=== PATIENT | female | born 1950 | race Caucasian/White ===

== ENCOUNTER 2024-06-01 10:46 | Emergency (ER) | payer MEDICARE, BC ==
[~2024-06-01] VITALS: Ht 170.2 cm; Wt 74.0 kg
--- NOTE | 2024-06-01 11:52 | ECG ---
[facility] Test Date: 2024-06-01 Test Time: 11:22:28 Pat Name: LINNEA TORRES Department: ER Room: Gender: F General Labor: LENORE : 1950 Requested By: MICHAEL YODER Order Number: [id number] Reading MD: Measurements Intervals [place] Rate: 83 P: 57 [place]: 130 QRS: 68 QRSD: 86 T: 48 QT: 369 QTc: 434 Interpretive Statements Sinus rhythm Please click the below link to view image of tracing.
[2024-06-01 12:15] LABS: Basophils # (auto) 0 10 ^3/uL (0-0.2); Basophils % (auto) 0.4 % (0.0-2.0); Eosinophils # (auto) 0 10 ^3/uL (0-0.8); Eosinophils % (auto) 0.1 % (0.0-7.0); Hematocrit 36.9 % (36.0-46.0); Hemoglobin 12.7 g/dL (12.2-16.2); Lymphocytes # (auto) 0.5 10 ^3/uL (0.4-5.4); Lymphocytes % (auto) 7.7 % (10.0-50.0); Mean Corpuscular Hemoglobin 31.2 pg (28.0-32.0); Mean Corpuscular Hgb Conc. 34.6 g/dL (32.0-36.0); Mean Corpuscular Volume 90.3 fL (80.0-100.0); Monocytes # (auto) 0.4 10 ^3/uL (0-1.3); Monocytes % (auto) 5.5 % (0.0-12.0); Neutrophils # (auto) 6.1 10 ^3/uL (1.6-8.6); Neutrophils % (auto) 86.3 % (37.0-80.0); Platelet Count (auto) 159 10^3/uL (140-450); Red Blood Cells 4.08 10^6/uL (4.0-5.20); Red Cell Distribution Width 15.2 % (11.8-14.3)
[2024-06-01 12:24] LABS: Anion Gap 8 (5-15); Carbon Dioxide 25 mmol/L (20-31); Chloride 104 mmol/L (98-107); Potassium 3.9 mmol/L (3.5-5.1); Sodium 137 mmol/L (136-145)
[2024-06-01] MEDS: methylPREDNISolone SOD SUCC 125 MG/2 ML VL IV ONE (12:24)
[2024-06-01 12:25] LABS: Calcium 9.3 mg/dL (8.7-10.4)
[2024-06-01 12:30] LABS: BUN/Creatinine Ratio 11.6 (10.0-20.0); Blood Urea Nitrogen 14 mg/dL (9-23)
[2024-06-01 12:35] LABS: Glucose 123 mg/dL (74-106)
--- NOTE | 2024-06-01 12:35 | ED.PDOC ---
SOB-HPI HPI Comments 73 y.o female presents to the ED for a chief complaint of SOB associated with a cough and white phlegm sputum that started 2 weeks ago. Patient has been in contact with sick family member recently. Patient reports being seen at urgent care earlier today, was told her SPO2 was reading in the low 90's/ high 80's so she was given a breathing treatment and placed on oxygen. Patient felt relief s/p treatment but SPO2 dropped when taken off oxygen. Patient arrives to the ED with 3 liters of oxygen placed by urgent care and is saturating at 96%. Patient denies any chest pain, nausea, vomiting, fever, or chills. Patient has a medical history of COPD stage 2, CKD stage 3, HTN, GERD, pancreatitis. Patient is not on any oxygen at home and has been using her inhaler but has no relief. Patient was a previous tobacco smoker and now is on nicotine patches. Chief Complaint: Shortness of Breath Time Seen by MD: 11:33 Reviewed notes: Nurses Notes, Medications, Allergies Information Source: Patient Mode of Arrival: Ambulatory Severity: Moderate Timing: Weeks (2) Duration: Since onset Context: At Rest PE Risk Factors: None History of: COPD Modifying Factors: Nothing Associated Signs and Symptoms: Cough If cough with SOB: Productive, White Past Medical History PAST MEDICAL HISTORY: COPD, GERD, HTN Past Medical History (Other): CKD stage 3, pancreatitis Surgical History (Other): benign breast biopsy TARGET TRIMMER History: No Pertinent TARGET TRIMMER History Family History Family History: Reviewed,noncontributory to illness, No family hx of Cancer, No family hx of DM, No family hx of Heart stephen, No family hx of HTN, No family hx ofKidney stephen, No family hx of Liver stephen, No family hx of Lung stephen, No family hx of Stroke Social History Smoker: Non-Smoker, Other Alcohol: Denies ETOH Use Drugs: Denies Drug Use Lives In: Home Constitutional: denies: chills, diaphoresis, fatigue, fever, malaise, sweats, weakness, others EENTM: denies: blurred vision, double vision, ear bleeding, ear discharge, ear drainage, ear pain, ear ringing, eye pain, eye redness, hearing loss, mouth pain, mouth swelling, nasal discharge, nose bleeding, nose congestion, nose pain, photophobia, tearing, throat pain, throat swelling, voice changes, others Respiratory: reports: cough, SOB at rest, shortness of breath, SOB with excertion; denies: hemoptysis, orthopnea, stridor, wheezing, others Cardiovascular: denies: chest pain, dizzy spells, diaphoresis, Dyspnea on exertion, edema, irregular heart beat, left arm pain, lightheadedness, palpitations, PND, syncope, others Gastrointestinal: denies: abdomen distended, abdominal pain, blood streaked bowels, constipated, diarrhea, dysphagia, difficulty swallowing, hematemesis, melena, nausea, poor appetite, poor fluid intake, rectal bleeding, rectal pain, vomiting, others Genitourinary: denies: abnormal vagina bleeding, burning, dyspareunia, dysuria, flank pain, frequency, hematuria, incontinence, pain, , vagina discharge, urgency, others Neurological: denies: dizziness, fainting, headache, left sided numbness, left sided weakness, numbness, paresthesia, pre-existing deficit, right sided numbness, right sided weakness, seizure, speech problems, tingling, tremors, weakness, others Musculoskeletal: denies: back pain, gout, joint pain, joint swelling, muscle pain, muscle stiffness, neck pain, others Integumetry: denies: bruises, change in color, change in hair/nails, dryness, laceration, lesions, lumps, rash, wounds, others Allergic/Immunocompromised: denies: Difficulty Healing, Frequent Infections, Hives, Itching, others Hematologic/Lymphatic: denies: anemia, blood clots, easy bleeding, easy bruising, swollen glands, others Endocrine: denies: excessive hunger, excessive sweating, excessive thirst, excessive urination, flushing, intolerance to cold, intolerance to heat, une xplained weight gain, unexplained weight loss, others Psychiatric: denies: anxiety, bipolar disorder, depression, hopeless, panic disorder, schizophrenia, sleepless, suicidal, others All Other Systems: Reviewed and Negative Physical Exam General Appearance: No Apparent Distress HEENT: Other (Moist mucous membranes, face and pupils symmetric) Neck: Full Range of Motion, Normal Inspection Respiratory: Decreased Breath Sounds, No Accessory Muscle Use, No Respiratory Distress, Rhonchi Cardiovascular: No Edema, No JVD, Regular Rate/Rhythm Breast Exam: Deferred Gastrointestinal: Non Tender, Soft Genitalia: Deferred Pelvic: Deferred Rectal: Deferred Extremities: Normal inspection, Normal range of motion, Non-tender, No pedal edema Neurologic: Alert (Oriented x4), Normal Affect, Normal Mood, Other (Moves all extremities. No gross focal deficit.) Cerebellar Function: NOT DONE Reflexes: NOT DONE Skin: Dry, Normal Color, Warm Lymphatic: NOT DONE EKG EKG : Comments Sinus rhythm, rate 83, normal intervals, normal axis, normal QRS, no ST/T changes. Was a procedure done? Was a procedure done?: No Differential Dx Differential Diagnosis: Bronchitis, CHF, COPD, Pneumonia, Respiratory Distress, URI X-Ray, Labs, Meds, VS Vital Signs Date Time Temp Pulse Resp B/P (MAP) Pulse Ox O2 Delivery O2 Flow Rate FiO2 06/01/24 12:47 18 93 Nasal Cannula* 3 32 06/01/24 12:47 93 Nasal Cannula* 3 32 06/01/24 12:30 Nasal Cannula* 3 32 06/01/24 12:27 98.9 70 20 100/72 (81) 98 98.9 06/01/24 11:26 20 96 Nasal Cannula* 3 32 06/01/24 11:26 98.9 65 20 99/74 (82) 96 06/01/24 11:22 83 Lab Test 06/01/24 13:12 06/01/24 12:00 Range/Units Troponin I High Sensitivity 3 L 4 </=34 ng/L White Blood Count 7.0 4.4-10.8 10^3/uL Red Blood Count 4.08 4.0-5.20 10^6/uL Hemoglobin 12.7 12.2-16.2 g/dL Hematocrit 36.9 36.0-46.0 % Mean Corpuscular Volume 90.3 80.0-100.0 fL Mean Corpuscular Hemoglobin 31.2 28.0-32.0 pg Mean Corpuscular Hemoglobin Concent 34.6 32.0-36.0 g/dL Red Cell Distribution Width 15.2 H 11.8-14.3 % Platelet Count 159 140-450 10^3/uL Mean Platelet Volume 7.2 6.9-10.8 fL Neutrophils (%) (Auto) 86.3 H 37.0-80.0 % Lymphocytes (%) (Auto) 7.7 L 10.0-50.0 % Monocytes (%) (Auto) 5.5 0.0-12.0 % Eosinophils (%) (Auto) 0.1 0.0-7.0 % Basophils (%) (Auto) 0.4 0.0-2.0 % Neutrophils # (Auto) 6.1 1.6-8.6 10 ^3/uL Lymphocytes # (Auto) 0.5 0.4-5.4 10 ^3/uL Monocytes # (Auto) 0.4 0-1.3 10 ^3/uL Eosinophils # (Auto) 0 0-0.8 10 ^3/uL Basophils # (Auto) 0 0-0.2 10 ^3/uL Nucleated Red Blood Cells 0.0 % Sodium Level 137 136-145 mmol/L Potassium Level 3.9 3.5-5.1 mmol/L Chloride Level 104 98-107 mmol/L Carbon Dioxide Level 25 20-31 mmol/L Anion Gap 8 5-15 Blood Urea Nitrogen 14 9-23 mg/dL Creatinine 1.21 H 0.550-1.02 mg/dL Glomerular Filtration Rate Calc 47 >90 mL/min BUN/Creatinine Ratio 11.6 10.0-20.0 Serum Glucose 123 H 74-106 mg/dL Calcium Level 9.3 8.7-10.4 mg/dL B-Type Natriuretic Peptide 68.24 0-100 pg/mL Current Medications Medications (Trade) Dose Ordered Sig/Abdi Route Start Time Stop Time Status Last Admin Albuterol (Ventolin Medneb) 5 mg ONCE ONCE NEB 06/01/24 12:00 06/01/24 12:01 DC 06/01/24 12:41 Ipratropium [place] (Atrovent Medneb) 0.5 mg ONCE ONCE NEB 06/01/24 12:00 06/01/24 12:01 DC 06/01/24 12:42 Methylprednisolone Sodium Succinate (Solu Medrol) 125 mg ONCE ONCE IV 06/01/24 12:00 06/01/24 12:01 DC 06/01/24 12:[address] [address] Ph: [phone] DIAGNOSTIC IMAGING Diagnostic Imaging Report : [id number] Signed PATIENT: LINNEA TORRES ACCT: [id number] UNIT: [id number] : 1950 LOC: ER ROOM / BED: / AGE / SEX: 73 / F ADM STATUS: REG ER SERVICE 1149 ORDERING PHYSICIAN: MICHAEL MAXWELL MD PROCEDURE(s): CXRP - CHEST PORTABLE REASON: sob ORDER NUMBER(s): [id number], ACCESSION NUMBER(s): [id number] EXAM: XY CHEST PORTABLE HISTORY: sob COMPARISON: None TECHNIQUE: Portable upright AP view of the chest was performed. FINDINGS: No pneumothorax, consolidative infiltrates, or pulmonary edema. The heart is not enlarged. The aortic arch is calcific. IMPRESSION: No acute intrathoracic process. ATED BY: RHYS MORRISON MD DICTATED DATE/TIME: 06/01/24 1320 SIGNED BY: RHYS MORRISON MD SIGNED DATE/TIME: 06/01/24 1320 CC: X-Ray, Labs, Meds, VS Comment 73-year-old female with history of hypertension, GERD, COPD, CKD and pa ncreatitis referred by urgent care for difficulty breathing and hypoxia. Vitals remarkable for oxygen saturation 93% on 3 L nasal cannula Exam remarkable for scattered rhonchi, no respiratory distress Rhythm strip independently interpreted by me: Sinus rhythm, rate 83, no ectopy. Chest x-ray unremarkable CBC unremarkable, metabolic panel remarkable for creatinine 1.21, BNP and serial troponins negative Patient had already received 1 breathing treatment at urgent Care In ER she received albuterol 5 mg/Atrovent 0.5 mg nebulized, Solu-Medrol 125 mg IV On re-evaluation, oxygen saturation is still low on room air, patient is not in respiratory distress. Plan is to admit the patient for pulmonology evaluation and respiratory support as needed Time of 1ST Reevaluation: 12:35 Reevaluation 1ST: Unchanged Patient Education/Counseling: Diagnosis, Treatment, Prognosis Family Education/Counseling: No Family Present Departure 1 Departure Time of Disposition: 16:00 Impression: Primary Impression: COPD with acute exacerbation Disposition: ADMITTED INPATIENT Admit to: Tele Condition: Guarded Critical Care Note Critical Care Time?: No Stability Stability form required: No Heart Score Heart Score: Heart Score Response (Comments) Value History N/A 0 EKG N/A 0 Age N/A 0 Risk Factors N/A 0 Troponin N/A 0 Total 0 I personally scribed for MICHAEL MAXWELL MD ([facility]) on 06/01/24 at 12:35. Electronically submitted by Leeanna Zurita ([facility]). I personally scribed for MICHAEL MAXWELL MD ([facility]) on 06/01/24 at 15:12. Electronically submitted by Leeanna Zurita ([facility]). MICHAEL MAXWELL MD Jun 01, 2024 12:35
[2024-06-01] MEDS: ALBUTEROL SULF 2.5 MG/0.5ML(0.5%) NEB SOLN NEB ONE (12:41)
[2024-06-01] MEDS: IPRATROPIUM BROM 0.5 MG/2.5ML INH SOL NEB ONE (12:42)
--- NOTE | 2024-06-01 13:23 | DVH ---
EXAM: XY CHEST PORTABLE HISTORY: sob COMPARISON: None TECHNIQUE: Portable upright AP view of the chest was performed. FINDINGS: No pneumothorax, consolidative infiltrates, or pulmonary edema. The heart is not enlarged. The aorti c arch is calcific. IMPRESSION: No acute intrathoracic process.
[2024-06-01 16:50] VITALS: BP 104/50; PULSE 95; RESP 16; TEMP 98.2; O2SAT 90
[2024-06-01] MEDS ORDERED: ONDANSETRON HCL 4 MG/2 ML VIAL IV PRN (19:15)
[2024-06-01] MEDS ORDERED: ALBUTEROL SULF 2.5 MG/0.5ML(0.5%) NEB SOLN NEB PRN (19:15)
[2024-06-01] MEDS ORDERED: ACETAMINOPHEN 325 MG TAB PO PRN (19:15)
[2024-06-01] MEDS ORDERED: IPRATROPIUM BROM 0.5 MG/2.5ML INH SOL NEB PRN (19:15)
[2024-06-02] MEDS ORDERED: ENOXAPARIN SOD 40 MG/0.4 ML SYRINGE SC SCH (10:00)
== END 2024-06-01 18:55 | disposition left against medical advice (07) ==
LOC: ER 10:46 → OVERFLOW 18:55 → ER 18:55 → OVERFLOW 19:02 → UNDOADMIN 19:02 → UNDODISIN 19:55
DX: J44.1 Chronic obstructive pulmonary disease with (acute) exacerbation (principal); I12.9 Hypertensive chronic kidney disease with stage 1 through stage 4 chronic kidney disease, or unspecified chronic kidney disease; N18.30 Chronic kidney disease, stage 3 unspecified; K21.9 Gastro-esophageal reflux disease without esophagitis; Z98.890 Other specified postprocedural states
CPT/HCPCS: 36415; 71045; 80048; 83880; 84484; 85025; 93005; 94640; 96374; 99285; J2919; G0378

== ENCOUNTER 2024-07-07 12:09 | Inpatient (IN) | payer MEDICARE, BC ==
[~2024-07-07] VITALS: Ht 170.2 cm; Wt 73.7 kg
--- NOTE | 2024-07-07 12:22 | ED.PDOC ---
SOB-HPI HPI Comments 73 y.o female presents to the ED for a chief complaint of SOB associated with dizziness that started 3 days ago. Patient went to urgent care for SOB earlier today and low SPO2 reading in the low 80's on RA at home. Urgent care provided reported SPO2 was 92% RA, gave breathing treatment and placed her on a 4L simple mask prior to sending her to the ED for higher level of care. Patient continues to feel SOB. Patient was seen at that urgent care on 06/01/24, was placed on antibiotics and then seen at [facility] on 06/05/24 and again was prescribed another round of antibiotics with dx of PNA. Patient has finished both courses since. Patient denies any chest pain, nausea, vomiting, diarrhea, abdominal pain, back pain, fever, or chills. Patient is not on any home oxygen. Vitals: BP: 122/70 HR: 138 Temp: 99.4 F SPO2: 96% RA RR: 22 Past medical history: HTN, hyperlipidemia, CKD stage 3, pancreatitis COPD Past surgical history: appendectomy and fundoplication Allergies: Iodine HPI: Poor Historian. REVIEW OF SYSTEMS: CONSTITUTIONAL: Denies acute: fever, diaphoresis, chills, HEAD: Denies acute: headache, photophobia Eyes: Denies acute: Double vision, vision loss, eye pain, eye discharge. EARS: Denies acute: tinnitus, hearing loss, ear discharge, ear pain, THROAT: Denies acute: sore throat, swelling, difficulty swallowing , pain with swallowing, change in voice. NECK: Denies acute: neck pain, neck swelling, stiff neck. HEART: Denies acute : chest pain, palpitations, LUNGS: Denies acute: wheezing, cough, hemoptysis ABDOMEN: Denies acute: abdominal pain, Nausea, Vomiting, diarrhea, melena , hematemesis, hematochezia SKIN: Denies acute: rash, redness, lesions, itchiness. EXTREMITIES: Denies acute: calf pain, numbness, tingling, weakness, denies pain in extremity. Denies acute: Low back pain. Neuro: Denies acute: focal neurological deficit, motor or sensory focal neurological deficit, tremors, seizure like activity, confusion, change in mental status, loss of bowel or bladder function, cauda equina like symptoms. : Denies acute: dysuria, hematuria, flank pain, increase in urinary frequency. PSYCH: Denies acute: hallucination, suicidal ideation, homicidal ideation. FEMALE: Denies acute: abnormal vaginal bleeding, foul odor, unusual discharge. PHYSICAL EXAM: General: --[id number]------acute distress, awake and alert. Head: normocephalic, atraumatic. Neck: supple, trachea is midline, no swelling. Throat: Normal phonation. Eyes:, no erythema, no purulent discharge, no proptosis, no icterus. Heart: regular tachycardic, no significant murmur appreciated. Lungs: [id number] apparent respiratory distress, Able to speak in full sentences. No wheezing, no rhonchi, no crackles. No stridors Clear to auscultation bilaterally. Abdomen: non tender to palpation, non distended, soft, no guarding, no rebound, + bowel sounds. Neuro: Awake, Alert, oriented to name, self, situation, follows commands GCS=15. Speech is normal. Skin: no petechia, no purpura, no cyanosis, non-pale, not jaundice. Lower extremities: --no - Pitting edema no deformity, no focal swelling, no calf TTP. Makes eye contact. moves all four extremities. Face: no apparent facial droop. 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 Was a procedure done?: No Differential Dx Differential Diagnosis: Asthma, Bronchitis, COPD, Respiratory Distress, URI, Other (DDx include ACS, unstable angina, anxiety, PE, pneumothroax, neoplasm, cardiac ischemia, COPD, asthma, CHF, pleural effusion, tobacco abuse, pneumonia, hypoxia, hypercapnia, anemia., infection/sepsis., pulmonary edema. Asthma, Cardiac tamponade, infection.) X-Ray, Labs, Meds, VS Vital Signs Date Time Temp Pulse Resp B/P (MAP) Pulse Ox O2 Delivery O2 Flow Rate FiO2 07/07/24 19:06 107 07/07/24 18:00 99.2 106 15 129/87 (101) 94 99.2 07/07/24 16:00 99.2 121 14 123/79 (94) 94 99.2 07/07/24 15:49 116 07/07/24 13:12 98.5 133 16 119/71 (87) 97 98.5 07/07/24 13:12 16 16 97 Nasal Cannula* 3 32 07/07/24 13:02 133 07/07/24 12:20 99.4 138 22 122/70 (87) 96 99.4 Lab Test 07/07/24 16:17 07/07/24 15:42 07/07/24 14:20 07/07/24 14:14 Range/Units Troponin I High Sensitivity 7 5 </=34 ng/L Blood Gas Specimen Type Arterial Blood Gas Sample Site Right radial Blood Gas Patient Temperature 37.0 Arterial Blood Date Drawn [id number] Arterial Blood pH 7.500 H 7.350-7.450 Arterial Blood Partial Pressure CO2 28.3 L 32.0-45.0 mmHg Arterial Blood Partial Pressure O2 58.8 L 83.0-108.0 mmHg Arterial Blood HCO3 21.6 21.0-28.0 mmol/L Arterial Blood Oxygen Saturation 91.8 L 94.0-98.0 % Arterial Blood Base Excess -0.5 -2.0-3.0 mmol/L Arterial Blood Oxyhemoglobin 90.6 L 94.0-98.0 % Arterial Blood Carboxyhemoglobin 1.0 0.5-1.5 % Arterial Blood Methemoglobin 0.3 0.0-1.5 % Christian Test Yes Blood Gas Total Hemoglobin 12.80 12.0-16.0 g/dL Blood Gas Modality Room air FiO2 % 21.0 Urine Color Light-yellow Yellow Urine Clarity Clear Clear Urine pH 6.5 5.0-9.0 Urine Specific [place] 1.016 1.001-1.035 Urine Protein Negative Negative Urine Ketones 1+ H Negative Urine Blood Negative Negative /uL Urine Nitrite Negative Negative Urine Bilirubin Negative Negative Urine Urobilinogen Normal Negative mg/dL Urine Leukocyte Esterase Negative Negative /uL Urine RBC 3 0 - 4 /hpf Urine Microscopic WBC 7 H 0-5 /HPF Urine Squamous Epithelial Cells Few <5 /hpf Urine Bacteria None seen None Seen /hpf Urine Glucose Normal Normal mg/dL Test 07/07/24 12:54 07/07/24 12:35 07/07/24 12:31 Range/Units White Blood Count 4.6 4.4-10.8 10^3/uL Red Blood Count 4.06 4.0-5.20 10^6/uL Hemoglobin 12.4 12.2-16.2 g/dL Hematocrit 36.9 36.0-46.0 % Mean Corpuscular Volume 91.0 80.0-100.0 fL Mean Corpuscular Hemoglobin 30.6 28.0-32.0 pg Mean Corpuscular Hemoglobin Concent 33.6 32.0-36.0 g/dL Red Cell Distribution Width 15.7 H 11.8-14.3 % Platelet Count 156 140-450 10^3/uL Mean Platelet Volume 7.3 6.9-10.8 fL Neutrophils (%) (Auto) 55.3 37.0-80.0 % Lymphocytes (%) (Auto) 28.9 10.0-50.0 % Monocytes (%) (Auto) 14.7 H 0.0-12.0 % Eosinophils (%) (Auto) 0.5 0.0-7.0 % Basophils (%) (Auto) 0.6 0.0-2.0 % Neutrophils # (Auto) 2.6 1.6-8.6 10 ^3/uL Lymphocytes # (Auto) 1.3 0.4-5.4 10 ^3/uL Monocytes # (Auto) 0.7 0-1.3 10 ^3/uL Eosinophils # (Auto) 0 0-0.8 10 ^3/uL Basophils # (Auto) 0 0-0.2 10 ^3/uL Nucleated Red Blood Cells 0.1 % D-Dimer, Quantitative 0.57 H 0.0-0.49 mg/L FEU Sodium Level 141 136-145 mmol/L Potassium Level 3.4 L 3.5-5.1 mmol/L Chloride Level 106 98-107 mmol/L Carbon Dioxide Level 25 20-31 mmol/L Anion Gap 10 5-15 Blood Urea Nitrogen 16 9-23 mg/dL Creatinine 1.05 H 0.550-1.02 mg/dL Glomerular Filtration Rate Calc 55 >90 mL/min BUN/Creatinine Ratio 15.2 10.0-20.0 Serum Glucose 95 74-106 mg/dL Lactic Acid Level 1.7 0.4-2.0 mmol/L Calcium Level 9.3 8.7-10.4 mg/dL Magnesium Level 1.8 1.6-2.6 mg/dL Total Bilirubin 0.3 0.2-1.0 mg/dL Aspartate Amino Transferase (AST) 21 13-40 U/L Alanine Aminotransferase (ALT) 18 7-40 U/L Alkaline Phosphatase 97 46-116 U/L Troponin I High Sensitivity 6 </=34 ng/L B-Type Natriuretic Peptide 48.30 0-100 pg/mL Total Protein 6.7 5.7-8.2 g/dL Albumin 4.4 3.2-4.8 g/dL Thyroid Stimulating Hormone (TSH) 1.70 0.55-4.78 uIU/mL Influenza Type A Antigen Negative Negative Influenza Type B Antigen Negative Negative SARS-CoV-2 Antigen (Rapid) Negative NEGATIVE Blood Gas Specimen Type Arterial Blood Gas Sample Site Right brachial Blood Gas Patient Temperature 37.0 Arterial Blood Date Drawn [id number] Arterial Blood pH 7.558 *H 7.350-7.450 Arterial Blood Partial Pressure CO2 23.3 L 32.0-45.0 mmHg Arterial Blood Partial Pressure O2 82.0 L 83.0-108.0 mmHg Arterial Blood HCO3 20.3 L 21.0-28.0 mmol/L Arterial Blood Oxygen Saturation 97.0 94.0-98.0 % Arterial Blood Base Excess -0.3 -2.0-3.0 mmol/L Arterial Blood Oxyhemoglobin 95.5 94.0-98.0 % Arterial Blood Carboxyhemoglobin 1.4 0.5-1.5 % Arterial Blood Methemoglobin 0.1 0.0-1.5 % Christian Test N/a Blood Gas Total Hemoglobin 13.10 12.0-16.0 g/dL Blood Gas Liter Flow 6.00 Blood Gas Modality Mask - simple FiO2 % 48.0 Blood Gas Critical Value Read Back Yes Blood Gas Notified Whom phani Galvan md Blood Gas Notified Time [id number] Blood Gas Notified By phani Mcfarland rrt Microbiology Date/Time Source Procedure Growth Status 07/07/24 12:54 Blood Blood Culture - Preliminary NO GROWTH AFTER 24 HOURS OF INCUBATION. Resulted 07/07/24 12:40 Blood Blood Culture - Preliminary NO GROWTH AFTER 24 HOURS OF INCUBATION. Resulted [place] [address] Ph: [phone] DIAGNOSTIC IMAGING Diagnostic Imaging Report : [id number] Signed PATIENT: LINNEA TORRES ACCT: [id number] UNIT: [id number] : 1950 LOC: ER ROOM / BED: / AGE / SEX: 73 / F ADM STATUS: REG ER SERVICE 1210 ORDERING PHYSICIAN: GUERLINE GALVAN DO PROCEDURE(s): CXRP - CHEST PORTABLE REASON: sob ORDER NUMBER(s): [id number], ACCESSION NUMBER(s): [id number] EXAM: XY CHEST PORTABLE Indication: sob Technique: Single frontal view of the chest was obtained Comparison: XY CHEST PORTABLE on DOS: 06/01/24 FINDINGS: Lines and Tubes: None Lungs: No focal consolidation. Pleura: No effusion. No pneumothorax. Cardiomediastinal contours: Unremarkable. Atherosclerotic vascular calcifications of the thoracic aorta are noted. Bones: No acute osseous abnormality. IMPRESSION: No acute cardiopulmonary disease. ATED BY: BROOKS THOMPSON MD DICTATED DATE/TIME: 07/07/24 1239 SIGNED BY: BROOKS THOMPSON MD SIGNED DATE/TIME: 07/07/24 1239 CC: Time of 1ST Reevaluation: 12:49 Reevaluation 1ST: Improved Patient Education/Counseling: Diagnosis, Treatment Family Education/Counseling: Other Comments Patient presented with the above HPI.----dyspnea--workup was initiated. patient was found with the above mentioned diagnosis. the following medications were ordered: please refer to order lists of meds and tests obtained by myself Dr. Galvan. Patient ED course and VS have been stabilized. Patient has been reassessed in the ED and remained in a stable condition. Pertinent incidental findings were discussed with the patient and/or family. Patient/family voices understanding and is agreeable with plan. Patient has been observed in the ED adequate length of time to insure improvement/stability. Escalation of care considered: Consideration of escalation to observation or admission ABG was obtained with supplemental oxygen FiO2 43% patient does not use oxygen at home. Patient was ADMITTED to the medicine team for further evaluation and treatment of their presentation. All the reports of any imaging studies that were ordered by myself were reviewed by myself. Departure 1 Departure Time of Disposition: 12:24 Impression: Primary Impression: Respiratory distress Additional Impressions: COPD exacerbation Hypoxemia Disposition: ADMITTED INPATIENT Admit to: Tele Condition: Guarded Discharged With: Self Critical Care Note Critical Care Time?: Yes (35 min-critical care time only) Heart Score Heart Score: Heart Score Response (Comments) Value History Slightly Suspicious 0 EKG Normal 0 Age >65 2 Risk Factors >3 or Hx ASHD 2 Troponin Normal limit 0 Total 4 I personally scribed for GUERLINE GALVAN DO ([email or web address]) on 07/07/24 at 12:22. Electronically submitted by Leeanna Zurita ([facility]). I personally scribed for GUERLINE GALVAN DO ([facility]) on 07/07/24 at 12:37. Electronically submitted by Leeanna Zurita ([facility]). I personally scribed for GUERLINE GALVAN DO ([email or web address]) on 07/07/24 at 12:51. Electronically submitted by Leeanna Zurita ([facility]). GUERLINE GALVAN DO Jul 07, 2024 12:22
[2024-07-07 12:37] LABS: Base Excess -0.3 mmol/L (-2.0-3.0)
--- NOTE | 2024-07-07 12:41 | DVH ---
EXAM: XY CHEST PORTABLE Indication: sob Technique: Single frontal view of the chest was obtained Comparison: XY CHEST PORTABLE on DOS: 06/01/24 FINDINGS: Lines and Tubes: None Lungs: No focal consolidation. Pleura: No effusion. No pneumothorax. Cardiomediastinal contours: Unremarkable. Atherosclerotic vascular calcifications of the thoracic ao rta are noted. Bones: No acute osseous abnormality. IMPRESSION: No acute cardiopulmonary disease.
[2024-07-07] MEDS: IPRATROPIUM BROM 0.5 MG/2.5ML INH SOL NEB ONE (12:44)
[2024-07-07] MEDS: ALBUTEROL SULF 2.5 MG/0.5ML(0.5%) NEB SOLN NEB ONE (12:44)
[2024-07-07] MEDS: methylPREDNISolone SOD SUCC 125 MG/2 ML VL IV ONE (12:45)
[2024-07-07 13:12] VITALS: PULSE 16; RESP 16; O2SAT 97
[2024-07-07 13:32] LABS: Basophils # (auto) 0 10 ^3/uL (0-0.2); Basophils % (auto) 0.6 % (0.0-2.0); Eosinophils # (auto) 0 10 ^3/uL (0-0.8); Eosinophils % (auto) 0.5 % (0.0-7.0); Hematocrit 36.9 % (36.0-46.0); Hemoglobin 12.4 g/dL (12.2-16.2); Lymphocytes # (auto) 1.3 10 ^3/uL (0.4-5.4); Lymphocytes % (auto) 28.9 % (10.0-50.0); Mean Corpuscular Hemoglobin 30.6 pg (28.0-32.0); Mean Corpuscular Hgb Conc. 33.6 g/dL (32.0-36.0); Monocytes # (auto) 0.7 10 ^3/uL (0-1.3); Monocytes % (auto) 14.7 % (0.0-12.0); Neutrophils # (auto) 2.6 10 ^3/uL (1.6-8.6); Neutrophils % (auto) 55.3 % (37.0-80.0); Nucleated Red Blood Cells % 0.1 %; Platelet Count (auto) 156 10^3/uL (140-450); Red Blood Cells 4.06 10^6/uL (4.0-5.20); Red Cell Distribution Width 15.7 % (11.8-14.3); White Blood Cell 4.6 10^3/uL (4.4-10.8)
[2024-07-07 13:42] LABS: Alanine Aminotransferase 18 U/L (7-40); Albumin 4.4 g/dL (3.2-4.8); Alkaline Phosphatase 97 U/L (46-116); Anion Gap 10 (5-15); Aspartate Aminotransferase 21 U/L (13-40); BUN/Creatinine Ratio 15.2 (10.0-20.0); Blood Urea Nitrogen 16 mg/dL (9-23); Calcium 9.3 mg/dL (8.7-10.4); Carbon Dioxide 25 mmol/L (20-31); Chloride 106 mmol/L (98-107); Glucose 95 mg/dL (74-106); Magnesium 1.8 mg/dL (1.6-2.6); Sodium 141 mmol/L (136-145)
[2024-07-07 13:45] LABS: Bilirubin, Total 0.3 mg/dL (0.2-1.0); Potassium 3.4 mmol/L (3.5-5.1)
[2024-07-07 13:48] LABS: COVID19 ANTIGEN SOFIA FIA NEGATIVE (NEGATIVE); Rapid Influenza A Negative (Negative); Rapid Influenza B Negative (Negative)
[2024-07-07 13:51] LABS: Total Protein 6.7 g/dL (5.7-8.2)
[2024-07-07 14:14] LABS: Urine Bacteria None Seen /hpf (None Seen)
[2024-07-07 15:05] LABS: Urine Blood Negative /uL (Negative); Urine Clarity Clear (Clear); Urine Color Light-Yellow (Yellow); Urine Protein, UAD Negative (Negative); Urine Specific Gravity 1.016 (1.001-1.035); Urine Squamous Epithelial Cell FEW /hpf (<5); Urine Urobilinogen Normal (Negative); Urine WBC 7 /HPF (0-5); Urine pH 6.5 (5.0-9.0)
[2024-07-07 15:50] LABS: Base Excess -0.5 mmol/L (-2.0-3.0)
[2024-07-07] MEDS: ACETAMINOPHEN 325 MG TAB PO ONE (15:52)
--- NOTE | 2024-07-07 16:58 | ECG ---
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
[2024-07-07 19:30] VITALS: BP 134/89; PULSE 115; RESP 19; TEMP 99.2; O2SAT 96
[2024-07-07] MEDS: IPRATROPIUM BROM 0.5 MG/2.5ML INH SOL NEB PRN (19:30)
[2024-07-07] MEDS: ALBUTEROL SULF 2.5 MG/0.5ML(0.5%) NEB SOLN NEB PRN (19:30)
[2024-07-07] MEDS: ALBUTEROL SULF 2.5 MG/0.5ML(0.5%) NEB SOLN ONE (19:31)
[2024-07-07] MEDS: IPRATROPIUM BROM 0.5 MG/2.5ML INH SOL ONE (19:31)
[2024-07-07 19:38] VITALS: PULSE 108; RESP 18; O2SAT 96
[2024-07-07 20:45] VITALS: PULSE 123; RESP 17; O2SAT 97
[2024-07-07 22:02] VITALS: BP 118/83; PULSE 103; RESP 17; TEMP 97.6; O2SAT 92
[2024-07-07 22:26] VITALS: BP 118/83; PULSE 103; RESP 17; TEMP 97.6; O2SAT 92
--- NOTE | 2024-07-07 22:42 | DVHHP2 ---
History of Present Illness Reason for Visit: Shortness for breath History of Present Illness 73-year-old female presents for evaluation of shortness for breath. Patient reports a two day history of worsening shortness for breath with associated nonproductive cough. She also reports mild dizziness. No chest pain or palpitations. On arrival patient's O2 saturation was in the mid 80s currently she is on 2 L of nasal cannula saturating 93%. No other acute complaints reported. Past Medical History COPD, chronic kidney disease, hypertension and dyslipidemia Past Surgical History Denies Family History Noncontributory Smoke: No ALCOHOL: none Drugs: None Lives: with Family Review of Systems Review of Systems Review of systems are currently negative otherwise addressed in HPI. Allergies: Coded Allergies: Iodine (Verified Allergy, Unknown, 06/01/24) Medications Current Medications Medications Dose Ordered Sig/Abdi Route Start Time Stop Time Status Last Admin Dose Admin Albuterol 2.5 mg Q6HPRN PRN NEB 07/07/24 19:15 07/07/24 19:30 2.5 MG Ipratropium [place] 0.5 mg Q6HPRN PRN NEB 07/07/24 19:15 07/07/24 19:30 0.5 MG Methylprednisolone Sodium Succinate 40 mg BID IV 07/07/24 22:00 Ondansetron HCl 4 mg Q4HP PRN IV 07/07/24 19:15 Enoxaparin Sodium 30 mg DAILY SC 07/08/24 10:00 Acetaminophen 650 mg Q6HP PRN PO 07/07/24 19:15 Exam Vital Signs Vital Signs Date Time Temp Pulse Resp B/P (MAP) Pulse Ox O2 Delivery O2 Flow Rate FiO2 07/07/24 22:02 97.6 103 17 118/83 (95) 92 97.6 07/07/24 20:45 Nasal Cannula* 3 32 Exam Gen: 73-year-old female in mild distress Skin: Warm, dry, normal color and texture, no rash. HEENT: Normocephalic atraumatic, mucous membranes moist and pink. Neck: Cervical and supraclavicular nodes normal without enlargement, trachea is midline, thyroid gland is normal without masses. Pulmonary: Diminished breath sounds bilaterally Cardiac: Sinus tachycardia Abdomen: Soft, nontender, nondistended, bowel sounds present all 4 quadrants, no guarding, no rigidity, no organomegaly. Extremities: No cyanosis, clubbing, no edema Neuro: Cranial nerves II through XII grossly intact, normal affect and speech, no focal motor deficits. Labs/Xrays ORDERING PHYSICIAN: GUERLINE GALVAN DO PROCEDURE(s): CXRP - CHEST PORTABLE REASON: sob ORDER NUMBER(s): [id number], ACCESSION NUMBER(s): [id number] EXAM: XY CHEST PORTABLE Indication: sob Technique: Single frontal view of the chest was obtained Comparison: XY CHEST PORTABLE on DOS: 06/01/24 FINDINGS: Lines and Tubes: None Lungs: No focal consolidation. Pleura: No effusion. No pneumothorax. Cardiomediastinal contours: Unremarkable. Atherosclerotic vascular calcifications of the thoracic aorta are noted. Bones: No acute osseous abnormality. IMPRESSION: No acute cardiopulmonary disease. Labs Test 07/07/24 16:17 07/07/24 15:42 07/07/24 14:14 07/07/24 12:54 Range/Units Troponin I High Sensitivity 7 </=34 ng/L Blood Gas Specimen Type Arterial Blood Gas Sample Site Right radial Blood Gas Patient Temperature 37.0 Arterial Blood Date Drawn [id number] Arterial Blood pH 7.500 H 7.350-7.450 Arterial Blood Partial Pressure CO2 28.3 L 32.0-45.0 mmHg Arterial Blood Partial Pressure O2 58.8 L 83.0-108.0 mmHg Arterial Blood HCO3 21.6 21.0-28.0 mmol/L Arterial Blood Oxygen Saturation 91.8 L 94.0-98.0 % Arterial Blood Base Excess -0.5 -2.0-3.0 mmol/L Arterial Blood Oxyhemoglobin 90.6 L 94.0-98.0 % Arterial Blood Carboxyhemoglobin 1.0 0.5-1.5 % Arterial Blood Methemoglobin 0.3 0.0-1.5 % Christian Test Yes Blood Gas Total Hemoglobin 12.80 12.0-16.0 g/dL Blood Gas Modality Room air FiO2 % 21.0 Urine Color Light-yellow Yellow Urine Clarity Clear Clear Urine pH 6.5 5.0-9.0 Urine Specific [place] 1.016 1.001-1.035 Urine Protein Negative Negative Urine Ketones 1+ H Negative Urine Blood Negative Negative /uL Urine Nitrite Negative Negative Urine Bilirubin Negative Negative Urine Urobilinogen Normal Negative mg/dL Urine Leukocyte Esterase Negative Negative /uL Urine RBC 3 0 - 4 /hpf Urine Microscopic WBC 7 H 0-5 /HPF Urine Squamous Epithelial Cells Few <5 /hpf Urine Bacteria None seen None Seen /hpf Urine Glucose Normal Normal mg/dL White Blood Count 4.6 4.4-10.8 10^3/uL Red Blood Count 4.06 4.0-5.20 10^6/uL Hemoglobin 12.4 12.2-16.2 g/dL Hematocrit 36.9 36.0-46.0 % Mean Corpuscular Volume 91.0 80.0-100.0 fL Mean Corpuscular Hemoglobin 30.6 28.0-32.0 pg Mean Corpuscular Hemoglobin Concent 33.6 32.0-36.0 g/dL Red Cell Distribution Width 15.7 H 11.8-14.3 % Platelet Count 156 140-450 10^3/uL Mean Platelet Volume 7.3 6.9-10.8 fL Neutrophils (%) (Auto) 55.3 37.0-80.0 % Lymphocytes (%) (Auto) 28.9 10.0-50.0 % Monocytes (%) (Auto) 14.7 H 0.0-12.0 % Eosinophils (%) (Auto) 0.5 0.0-7.0 % Basophils (%) (Auto) 0.6 0.0-2.0 % Neutrophils # (Auto) 2.6 1.6-8.6 10 ^3/uL Lymphocytes # (Auto) 1.3 0.4-5.4 10 ^3/uL Monocytes # (Auto) 0.7 0-1.3 10 ^3/uL Eosinophils # (Auto) 0 0-0.8 10 ^3/uL Basophils # (Auto) 0 0-0.2 10 ^3/uL Nucleated Red Blood Cells 0.1 % D-Dimer, Quantitative 0.57 H 0.0-0.49 mg/L FEU Sodium Level 141 136-145 mmol/L Potassium Level 3.4 L 3.5-5.1 mmol/L Chloride Level 106 98-107 mmol/L Carbon Dioxide Level 25 20-31 mmol/L Anion Gap 10 5-15 Blood Urea Nitrogen 16 9-23 mg/dL Creatinine 1.05 H 0.550-1.02 mg/dL Glomerular Filtration Rate Calc 55 >90 mL/min BUN/Creatinine Ratio 15.2 10.0-20.0 Serum Glucose 95 74-106 mg/dL Lactic Acid Level 1.7 0.4-2.0 mmol/L Calcium Level 9.3 8.7-10.4 mg/dL Magnesium Level 1.8 1.6-2.6 mg/dL Total Bilirubin 0.3 0.2-1.0 mg/dL Aspartate Amino Transferase (AST) 21 13-40 U/L Alanine Aminotransferase (ALT) 18 7-40 U/L Alkaline Phosphatase 97 46-116 U/L B-Type Natriuretic Peptide 48.30 0-100 pg/mL Total Protein 6.7 5.7-8.2 g/dL Albumin 4.4 3.2-4.8 g/dL Thyroid Stimulating Hormone (TSH) 1.70 0.55-4.78 uIU/mL Test 07/07/24 12:35 07/07/24 12:31 Range/Units Influenza Type A Antigen Negative Negative Influenza Type B Antigen Negative Negative SARS-CoV-2 Antigen (Rapid) Negative NEGATIVE Blood Gas Liter Flow 6.00 Blood Gas Critical Value Read Back Yes Blood Gas Notified Whom phani Galvan md Blood Gas Notified Time [id number] Blood Gas Notified By phani Mcfarland rrt Assessment/Plan Assessment/Plan Assessment Acute on chronic hypoxic respiratory failure COPD exacerbation Hypertension Chronic kidney disease Plan Admit the patient to med surge to the hospitalist Anupam garvin Methylprednisone Resume home medications Continue treatment per orders. Plan discussed with: Patient My Orders Orders - MARS MOSHER AGACNP Procedure Category Date Status Time Albuterol Medneb PHA 07/07/24 In Process (Ventolin Medneb) 19:15 Ipratropium Medneb PHA 07/07/24 In Process (Atrovent Medneb) 19:15 Methylprednisolone PHA 07/07/24 In Process Sod Succ (Solu Medrol 22:00 Basic Metabolic Panel LAB 07/08/24 Verified 04:00 Admit ADMIT 07/07/24 Transmitted 19:07 Renal DIET 07/08/24 Transmitted Standard(2gna,3gk,Lopho) Breakfast Ondansetron Hcl PHA 07/07/24 In Process (Zofran) 19:15 Complete Blood Count LAB 07/08/24 Verified 04:00 Condition: Stable ARI 07/07/24 In Process 19:07 Enoxaparin Sodium PHA 07/08/24 In Process (Lovenox) 10:00 Acetaminophen Tablet PHA 07/07/24 In Process (Tylenol Tablet) 19:15 Bedrest With Bathroom ARI 07/07/24 In Process Privileg 19:07 Date of Service: Jul 07, 2024 Billing Provider: MARS MOSHER Common Visit Codes: [id number] INP/OBS CARE (HIGH) MARS MOSHER Jul 07, 2024 22:42
[2024-07-07] MEDS: methylPREDNISolone SOD SUCC 40 MG/ML VL IV SCH (22:48)
[2024-07-08] VITALS (14 sets, daily range): BP systolic 136–162; BP diastolic 70–87; PULSE 87–110; RESP 14–20; TEMP 97.3–98.3; O2SAT 91–99
[2024-07-08] MEDS: ACETAMINOPHEN 325 MG TAB PO PRN (00:58)
[2024-07-08] MEDS ORDERED: ATOR10TA PO (02:00)
[2024-07-08] MEDS ORDERED: ATEN-60 PO (02:00)
[2024-07-08] MEDS ORDERED: PANC3600 OR (02:00)
[2024-07-08] MEDS ORDERED: OMEP20TA PO (02:00)
[2024-07-08] MEDS ORDERED: BACL10TA PO (02:00)
[2024-07-08] MEDS ORDERED: LOSA-533 PO (02:00)
[2024-07-08] MEDS ORDERED: SERT-206 PO (02:01)
[2024-07-08] MEDS: ONDANSETRON HCL 4 MG/2 ML VIAL IV PRN (05:07)
[2024-07-08 06:05] LABS: Basophils # (auto) 0 10 ^3/uL (0-0.2); Basophils % (auto) 0.1 % (0.0-2.0); Eosinophils # (auto) 0 10 ^3/uL (0-0.8); Hematocrit 37.3 % (36.0-46.0); Hemoglobin 12.5 g/dL (12.2-16.2); Lymphocytes # (auto) 0.7 10 ^3/uL (0.4-5.4); Lymphocytes % (auto) 18.5 % (10.0-50.0); Mean Corpuscular Hemoglobin 30.2 pg (28.0-32.0); Mean Corpuscular Hgb Conc. 33.5 g/dL (32.0-36.0); Mean Corpuscular Volume 90.2 fL (80.0-100.0); Monocytes # (auto) 0.2 10 ^3/uL (0-1.3); Monocytes % (auto) 6.5 % (0.0-12.0); Neutrophils # (auto) 2.7 10 ^3/uL (1.6-8.6); Neutrophils % (auto) 74.9 % (37.0-80.0); Platelet Count (auto) 160 10^3/uL (140-450); Red Blood Cells 4.13 10^6/uL (4.0-5.20); White Blood Cell 3.6 10^3/uL (4.4-10.8)
[2024-07-08 06:18] LABS: Chloride 106 mmol/L (98-107); Potassium 4.1 mmol/L (3.5-5.1); Sodium 139 mmol/L (136-145)
[2024-07-08 06:19] LABS: Anion Gap 7 (5-15); Calcium 9.9 mg/dL (8.7-10.4); Carbon Dioxide 26 mmol/L (20-31)
[2024-07-08 06:24] LABS: BUN/Creatinine Ratio 18.2 (10.0-20.0); Blood Urea Nitrogen 18 mg/dL (9-23)
[2024-07-08 06:25] LABS: Glucose 142 mg/dL (74-106)
[2024-07-08] MEDS: ALBUTEROL SULF 2.5 MG/0.5ML(0.5%) NEB SOLN NEB SCH (09:53)
[2024-07-08] MEDS: IPRATROPIUM BROM 0.5 MG/2.5ML INH SOL NEB SCH ×2 (09:53→18:52)
[2024-07-08] MEDS: ENOXAPARIN SOD 30 MG/0.3 ML SYRINGE SC SCH (10:00)
--- NOTE | 2024-07-08 10:30 | DVH ---
BILATERAL LOWER EXTREMITY VENOUS DOPPLER CLINICAL HISTORY: elevated ddimer Technique: Duplex Doppler evaluation of the deep venous systems of both lower extremities from the co mmon femoral veins to the popliteal veins including color Doppler and spectral/pulsed waveform analys is was performed. COMPARISON: None FINDINGS: The right and left common femoral, superficial femoral, popliteal, posterior tibial veins and trifur cations appear patent with normal augmentation, phasicity, compressibility and color-flow. IMPRESSION: 1. There is no sonographic evidence for DVT in the lower extremities. HS:Y
--- NOTE | 2024-07-08 11:30 | DVH ---
NUCLEAR MEDICINE VENTILATION/PERFUSION LUNG SCAN. INDICATION: PULMONARY EMBOLISM COMPARISON: None TECHNIQUE: Following intravenous demonstration of 4.3 millicuries of technetium 99m MAA, and inhala tion of 7 mCi of Xe 133 scintigrams were obtained in multiple projections of the lungs. FINDINGS: There is normal uptake of radionuclide on both the ventilation and perfusion portions of the examinat ion. No mismatched perfusion defects are demonstrated. Uptake is normally homogeneous. IMPRESSION: Low probability for PE.
[2024-07-08] MEDS ORDERED: ALBUTEROL SULF 2.5 MG/0.5ML(0.5%) NEB SOLN NEB PRN (11:45)
[2024-07-08] MEDS: LEVALBUTEROL HCL 1.25 MG/3 ML NEB NEB SCH (12:00)
[2024-07-08] MEDS: amLODIPine BESYLATE 5 MG TAB PO SCH (12:14)
[2024-07-08] MEDS: ASPirin 81 mg TAB PO SCH (12:15)
[2024-07-08] MEDS: AZITHROMYCIN 500MG/ 250ML 250 ML IV SCH (12:34)
--- NOTE | 2024-07-08 16:26 | DVH ---
Procedure: CT CHEST WITHOUT CONTRAST Study Date and Requested Time: 07/08 03:49 PM History : copd Comparison: None Dose: CTDI: 8.39 mGy DLP: 310.93 mGycm Technique: Multiplanar images obtained through the chest without contrast Findings: The thyroid gland is unremarkable. Heart size is within normal limits. No evidence of aortic aneurysm. Mild atherosclerotic calcificati on of the aorta. The pulmonary trunk is normal in size. No significant mediastinal or hilar lymphadenopathy. No pneumothorax, pleural effusion or focal airspace consolidation. Bibasilar atelectasis. No signifi cant emphysematous changes. 2.9 cm hepatic cyst with additional subcentimeter hepatic lesions too small to characterize. Gastric wall thickening. 3.3 by 2.7 cm left adrenal nodule measuring up to 19 Hounsfield unit. Mild left pelv iectasis. The soft tissues are unremarkable. No destructive osseous lesions are noted. Impression: Bibasilar linear atelectasis. Otherwise no evidence for acute intrathoracic abnormalities. No findin gs to suggest COPD. 3.3 x 2.7 cm left adrenal nodule. Gastric wall thickening which may be due to inadequate distention/gastritis.
--- NOTE | 2024-07-08 16:51 | DVHPNRES ---
Progress Note Date Seen: Jul 08, 2024 Resident Creating Document: JADA ANGEL RESIDENT Medical Necessity Reason Pt with a Central, PICC or Fol: No Subjective Review of Systems 73-year-old female presents for evaluation of shortness for breath. Past Medical History: COPD, chronic kidney disease, hypertension and dyslipidemia Past Surgical History: Denies Family History: Noncontributory SH: Smoke: No. ALCOHOL: none. Drugs: None. Lives: with Family Patient reports a two day history of worsening shortness for breath with associated nonproductive cough. She also reports mild dizziness. No chest pain or palpitations. On arrival patient's O2 saturation was in the mid 80s currently she is on 2 L of nasal cannula saturating 93%. No other acute complaints reported. On my initial assessment, patient was seen and examined at bedside. She currently states feeling better than on admission, denies any significant chest pain, abdominal pain, dysuria, nausea, vomiting, diarrhea, constipation, dizziness, lightheadedness. She's currently tolerating diet. She is only complaining of aara-og-avmzkpeo shortness of breath, cough. But states feeling better than before. Objective vital signs Vital Sign Date Time Temp Pulse Resp B/P (MAP) Pulse Ox O2 Delivery O2 Flow Rate FiO2 07/08/24 13:00 97.3 109 19 140/79 (99) 91 97.3 07/08/24 09:56 Nasal Cannula* 1 24 Total Intake and Output 07/07/24 07/07/24 07/08/24 15:00 23:00 07:00 Intake Total 500 ml Output Total 540 ml Balance -40 ml medications Current Medications Medications Dose Ordered Sig/Abdi Route Start Time Stop Time Status Last Admin Dose Admin Methylprednisolone Sodium Succinate 40 mg BID IV 07/07/24 22:00 07/08/24 12:13 40 MG Ondansetron HCl 4 mg Q4HP PRN IV 07/07/24 19:15 07/08/24 05:07 4 MG Enoxaparin Sodium 30 mg DAILY SC 07/08/24 10:00 Acetaminophen 650 mg Q6HP PRN PO 07/07/24 19:15 07/08/24 12:25 650 MG Amlodipine Besylate 5 mg DAILY PO 07/08/24 10:00 07/08/24 12:14 5 MG Aspirin 81 mg DAILY PO 07/08/24 10:00 07/08/24 12:15 81 MG Azithromycin 250 ml @ 125 mls/hr DAILY IV 07/08/24 10:00 07/08/24 12:34 125 MLS/HR Albuterol 2.5 mg Q4HPRN PRN NEB 07/08/24 11:45 Levalbuterol HCl 0.625 mg Q6HR NEB 07/08/24 12:00 Ipratropium [place] 0.5 mg Q6HR [facility] 07/08/24 18:00 Pantoprazole Sodium 40 mg DAILY IV 07/08/24 22:00 Examination Physical examination as below: General: Awake, alert, comfortable appearing, in no acute distress. HEENT: Head is normocephalic and atraumatic. Pupils are equal, round, and reactive to light. Extraocular muscles are intact. No nasal discharge. No facial trauma. Intraoral exam shows moist mucous membranes with no tonsillar enlargement or exudate. Neck: Supple with no cervical lymphadenopathy. Heart: Regular rate without murmur, rub, or gallop. Lungs: Mild wheezing and moderate crackles bilateral Abdomen: No external sign of injury. Bowel sounds are present. Abdomen is soft, nontender. No rebound, no guarding, no rigidity. There are no palpable masses. There is no flank pain on exam. Extremities: Strong peripheral pulses. There is no clubbing, no cyanosis, and no edema. Skin: No rash. Neurologic: Cranial nerves II-XII intact without motor, sensory, or cerebellar deficit, no asterixis. laboratory and microbiology Laboratory Tests 07/08/24 04:44 Test 07/08/24 04:44 Range/Units Serum Glucose 142 H 74-106 mg/dL Microbiology Date/Time Source Procedure Growth Status 07/07/24 12:54 Blood Blood Culture - Preliminary NO GROWTH AFTER 24 HOURS OF INCUBATION. Resulted Labs and/or images reviewed: Labs reviewed by me, Image(s) reviewed by me Problem List/Assessment/Plan Problem List/Assessment/Plan Acute on chronic hypoxic respiratory failure COPD exacerbation Hypertension Chronic kidney disease Pneumonia, Gram-positive versus Gram-negative versus atypical Respiratory alkalosis Dyslipidemia Plan: Maintain oxygen saturation above 90% Continue Solu-Medrol 40 mg IV b.i.d. Continue breathing treatments q.4 hours while awake Azithromycin IV V/Q scan shows low probability for PE Rule out DVT with Doppler COVID and flu were negative Troponins were within normal limits BNP was 48 We will try to wean off her off the oxygen Goals of care were discussed for over 30 minutes. FULL CODE. Case was discussed with Dr. Baxter Plan discussed with: Patient, Other My Orders My Orders Orders - JADA ANGEL RESIDENT Procedure Category Date Status Time Nm Vq Scan NM 07/08/24 Resulted 08:56 Bilat Lower Dvt US 07/08/24 Resulted 08:56 Azithromycin 500mg/ PHA 07/08/24 In Process 250ml (Zithromax 50 10:00 Albuterol Medneb PHA 07/08/24 In Process (Ventolin Medneb) 11:45 Levalbuterol Hcl PHA 07/08/24 In Process (Xopenex Medneb) 12:00 Ipratropium Medneb PHA 07/08/24 In Process (Atrovent Medneb) 18:00 Pantoprazole PHA 07/08/24 In Process (Protonix) 22:00 Echo 2d Mode Cardiac US 07/08/24 Logged DOP 15:[address] 07/08/24 Resulted 15:25 Incentive Spirometry ORDERS 07/08/24 Transmitted Q 1hr 16:43 Basic Metabolic Panel LAB 07/09/24 Verified 04:00 Magnesium LAB 07/09/24 Verified 04:00 Date of Service: Jul 08, 2024 Billing Provider: RAHAT BAXTER MD Common Visit Codes: [id number] INP/OBS CARE(HIGH) JADA ANGEL RESIDENT Jul 08, 2024 16:51 RAHAT BAXTER MD Jul 09, 2024 14:23
[2024-07-08] MEDS: PANTOPRAZOLE 40 MG/10 ML VIAL INJ IV SCH (22:27)
[2024-07-09] VITALS (10 sets, daily range): BP systolic 136–154; BP diastolic 74–83; PULSE 81–111; RESP 18–22; TEMP 36.7; O2SAT 92–100
[2024-07-09] MEDS: guaiFENesin 200 MG/10 ML UD PO ONE (01:19)
[2024-07-09 07:48] LABS: Calcium 9.9 mg/dL (8.7-10.4); Chloride 105 mmol/L (98-107); Potassium 4.3 mmol/L (3.5-5.1); Sodium 140 mmol/L (136-145)
[2024-07-09 07:49] LABS: Anion Gap 8 (5-15); Carbon Dioxide 27 mmol/L (20-31)
[2024-07-09 07:55] LABS: BUN/Creatinine Ratio 18.3 (10.0-20.0); Blood Urea Nitrogen 20 mg/dL (9-23); Magnesium 1.8 mg/dL (1.6-2.6)
[2024-07-09 07:57] LABS: Glucose 143 mg/dL (74-106)
[2024-07-09] MEDS: [UNRECOGNIZED DRUG - OTHER] PO SCH (07:57)
[2024-07-09] MEDS: PANCRELIPASE PO SCH (07:57)
[2024-07-09 09:04] LABS: Base Excess -0.7 mmol/L (-2.0-3.0)
[2024-07-09] MEDS ORDERED: PRED20TA2 PO (09:40)
[2024-07-09] MEDS ORDERED: AZIT-43 PO (09:40)
[2024-07-09] MEDS ORDERED: UMEC1AER IN (09:40)
[2024-07-09] MEDS ORDERED: ALBUAER3 IN (09:40)
--- NOTE | 2024-07-09 15:37 | DVHSR ---
APPROVED REPORT EXAM: Two-dimensional and M-mode echocardiogram with Doppler and color Doppler. Blood Pressure: 136/78 mmHg INDICATION Chest Pain RISK FACTORS Height: 5'7", Weight: 162 DIMENSIONS LVDd4.7 (3.8-5.7cm)LA (2D)4.2 (1.9-4.0cm)Aortic Root3.2 (2.0-3.7cm) LVDs3.3 (2.5-4.0cm)LA (MM) (1.9-4.0cm)Aortic Cusp Exc1.9 (1.5-2.0cm) EF (%) 55.0 (55-70%)Rt. Atrium4.5 (1.9-4.0cm)Asc. Aorta cm IVSd0.6 (0.7-1.1cm)RV (D) (1.8-2.4cm) Mitral Valve MitralMitral Stenosis E wave0.66m/sMV Mean GR.mmHg A wave1.02m/sMV Peak GR.mmHg E/A ratio0.62D MVAcm2 DECEL [id number] 1/2 Timems Aortic Valve Aortic ValveAortic Stenosis V11.12m/Bryan Mean GR.6mmHg V21.45m/Bryan Peak GR.8mmHg LVOT Diameter2.3 (1.8-2.4cm)Doppler AVA3.21cm2 Pulmonic Valve V20.85m/s Tricuspid Valve TR Velocity2.08m/s [id number] Other Information Quality : Technically LimitedRhythm : Technically limited study due to body habitus. Conclusion Normal biventricular size and systolic function. LVEF 60-65%. Normal wall motion. Normal wall thickne ss. Grade 1 diastolic dysfunction. Mild biatrial enlargement. No significant valvular disease. Trace TR. RVSP estimated at 20 mmHg based on RAP of 3 mmHg. Sandra IVC. No pericardial effusion.
--- NOTE | 2024-07-09 15:38 | DVHDSRES ---
Discharge Summary Date of Admission Resident Creating Document: JADA ANGEL RESIDENT Jul 07, 2024 at 19:07 Date of Discharge: Jul 09, 2024 Admitting Diagnosis COPD exacerbation Labs/Diagnostic Data: Laboratory Results Test 07/09/24 08:58 07/09/24 06:17 07/08/24 04:44 07/07/24 16:17 Blood Gas Specimen Type Arterial Blood Gas Sample Site Left radial Blood Gas Patient Temperature 37.0 Arterial Blood Date Drawn [id number] Arterial Blood pH 7.426 (7.350-7.450) Arterial Blood Partial Pressure CO2 36.1 mmHg (32.0-45.0) Arterial Blood Partial Pressure O2 67.5 mmHg (83.0-108.0) Arterial Blood HCO3 23.2 mmol/L (21.0-28.0) Arterial Blood Oxygen Saturation 92.3 % (94.0-98.0) Arterial Blood Base Excess -0.7 mmol/L (-2.0-3.0) Arterial Blood Oxyhemoglobin 91.9 % (94.0-98.0) Arterial Blood Carboxyhemoglobin 0.2 % (0.5-1.5) Arterial Blood Methemoglobin 0.2 % (0.0-1.5) Christian Test Yes Blood Gas Total Hemoglobin 13.00 g/dL (12.0-16.0) Blood Gas Liter Flow 0.00 Blood Gas Modality Room air FiO2 % 21.0 Sodium Level 140 mmol/L (136-145) Potassium Level 4.3 mmol/L (3.5-5.1) Chloride Level 105 mmol/L (98-107) Carbon Dioxide Level 27 mmol/L (20-31) Anion Gap 8 (5-15) Blood Urea Nitrogen 20 mg/dL (9-23) Creatinine 1.09 mg/dL (0.550-1.02) Glomerular Filtration Rate Calc 53 mL/min (>90) BUN/Creatinine Ratio 18.3 (10.0-20.0) Serum Glucose 143 mg/dL (74-106) Calcium Level 9.9 mg/dL (8.7-10.4) Magnesium Level 1.8 mg/dL (1.6-2.6) White Blood Count 3.6 10^3/uL (4.4-10.8) Red Blood Count 4.13 10^6/uL (4.0-5.20) Hemoglobin 12.5 g/dL (12.2-16.2) Hematocrit 37.3 % (36.0-46.0) Mean Corpuscular Volume 90.2 fL (80.0-100.0) Mean Corpuscular Hemoglobin 30.2 pg (28.0-32.0) Mean Corpuscular Hemoglobin Concent 33.5 g/dL (32.0-36.0) Red Cell Distribution Width 15.0 % (11.8-14.3) Platelet Count 160 10^3/uL (140-450) Mean Platelet Volume 7.5 fL (6.9-10.8) Neutrophils (%) (Auto) 74.9 % (37.0-80.0) Lymphocytes (%) (Auto) 18.5 % (10.0-50.0) Monocytes (%) (Auto) 6.5 % (0.0-12.0) Eosinophils (%) (Auto) 0.0 % (0.0-7.0) Basophils (%) (Auto) 0.1 % (0.0-2.0) Neutrophils # (Auto) 2.7 10 ^3/uL (1.6-8.6) Lymphocytes # (Auto) 0.7 10 ^3/uL (0.4-5.4) Monocytes # (Auto) 0.2 10 ^3/uL (0-1.3) Eosinophils # (Auto) 0 10 ^3/uL (0-0.8) Basophils # (Auto) 0 10 ^3/uL (0-0.2) Nucleated Red Blood Cells 0.0 % Troponin I High Sensitivity 7 ng/L (</=34) Test 07/07/24 14:14 07/07/24 12:54 07/07/24 12:35 07/07/24 12:31 Urine Color Light-yellow (Yellow) Urine Clarity Clear (Clear) Urine pH 6.5 (5.0-9.0) Urine Specific [place] 1.016 (1.001-1.035) Urine Protein Negative (Negative) Urine Ketones 1+ (Negative) Urine Blood Negative /uL (Negative) Urine Nitrite Negative (Negative) Urine Bilirubin Negative (Negative) Urine Urobilinogen Normal mg/dL (Negative) Urine Leukocyte Esterase Negative /uL (Negative) Urine RBC 3 /hpf (0 - 4) Urine Microscopic WBC 7 /HPF (0-5) Urine Squamous Epithelial Cells Few /hpf (<5) Urine Bacteria None seen /hpf (None Seen) Urine Glucose Normal mg/dL (Normal) D-Dimer, Quantitative 0.57 mg/L FEU (0.0-0.49) Lactic Acid Level 1.7 mmol/L (0.4-2.0) Total Bilirubin 0.3 mg/dL (0.2-1.0) Aspartate Amino Transferase (AST) 21 U/L (13-40) Alanine Aminotransferase (ALT) 18 U/L (7-40) Alkaline Phosphatase 97 U/L (46-116) B-Type Natriuretic Peptide 48.30 pg/mL (0-100) Total Protein 6.7 g/dL (5.7-8.2) Albumin 4.4 g/dL (3.2-4.8) Thyroid Stimulating Hormone (TSH) 1.70 uIU/mL (0.55-4.78) Influenza Type A Antigen Negative (Negative) Influenza Type B Antigen Negative (Negative) SARS-CoV-2 Antigen (Rapid) Negative (NEGATIVE) Blood Gas Critical Value Read Back Yes Blood Gas Notified Whom phain Galvan md Blood Gas Notified Time [id number] Blood Gas Notified By phani Mcfarland rrt Other Laboratory Tests 07/09/24 06:17 07/08/24 04:44 Brief Hx & Hospital Course: 73-year-old female presents for evaluation of shortness for breath. Past Medical History: COPD, chronic kidney disease, hypertension and dyslipidemia Past Surgical History: Denies Family History: Noncontributory SH: Smoke: No. ALCOHOL: none. Drugs: None. Lives: with Family Patient reports a two day history of worsening shortness for breath with associated nonproductive cough. She also reports mild dizziness. No chest pain or palpitations. On arrival patient's O2 saturation was in the mid 80s currently she is on 2 L of nasal cannula saturating 93%. No other acute complaints reported. On my initial assessment, patient was seen and examined at bedside. She currently states feeling better than on admission, denies any significant chest pain, abdominal pain, dysuria, nausea, vomiting, diarrhea, constipation, dizziness, lightheadedness. She's currently tolerating diet. She is only complaining of [id number] shortness of breath, cough. But states feeling better than before. Patient has a CT of the chest which demonstrates emphysema, some interstitial opacities. Patient has had a elevated D-dimer, we will rule out a DVT with a lower extremity Doppler, we will also perform a V/Q scan which also showed a low probability of pulmonary embolism. Patient has a COVID and flu test were negative. We will continue the patient's breathing treatments, broad-spectrum antibiotics, Solu-Medrol. She continued to have significant clinical improvement. She currently states feeling better than on admission, denies any significant shortness of breath, chest pain, nausea, vomiting, abdominal pain. She is currently tolerating diet, ambulatory. We performed an ABG on room air after walking the patient, she did not qualify for home oxygen. Physical examination as below: General: Awake, alert, comfortable appearing, in no acute distress. HEENT: Head is normocephalic and atraumatic. Pupils are equal, round, and reactive to light. Extraocular muscles are intact. No nasal discharge. No facial trauma. Intraoral exam shows moist mucous membranes with no tonsillar enlargement or exudate. Neck: Supple with no cervical lymphadenopathy. Heart: Regular rate without murmur, rub, or gallop. Lungs: Mild wheezing and mild crackles bilateral, improved Abdomen: No external sign of injury. Bowel sounds are present. Abdomen is soft, nontender. No rebound, no guarding, no rigidity. There are no palpable masses. There is no flank pain on exam. Extremities: Strong peripheral pulses. There is no clubbing, no cyanosis, and no edema. Skin: No rash. Neurologic: Cranial nerves II-XII intact without motor, sensory, or cerebellar deficit, no asterixis. Patient will be discharge home, she will continue home medications as prescribed. She will continue taking azithromycin p.o., prednisone, we will also set her with albuterol on Anoro inhaler for maintenance. She will follow up in the discharge clinic in 1-2 weeks. Patient verbalized understanding and agree with the DC plan, we spent over 30 minutes explaining the plan. Case was discussed with Dr. Baxter Operations or Procedures [address] [address] Ph: [phone] DIAGNOSTIC IMAGING Diagnostic Imaging Report : [id number] Signed PATIENT: LINNEA TORRES ACCT: [id number] UNIT: [id number] : 1950 LOC: ER ROOM / BED: / AGE / SEX: 73 / F ADM STATUS: REG ER SERVICE 1210 ORDERING PHYSICIAN: GUERLINE GALVAN DO PROCEDURE(s): CXRP - CHEST PORTABLE REASON: sob ORDER NUMBER(s): [id number], ACCESSION NUMBER(s): [id number] EXAM: XY CHEST PORTABLE Indication: sob Technique: Single frontal view of the chest was obtained Comparison: XY CHEST PORTABLE on DOS: 06/01/24 FINDINGS: Lines and Tubes: None Lungs: No focal consolidation. Pleura: No effusion. No pneumothorax. Cardiomediastinal contours: Unremarkable. Atherosclerotic vascular calcifications of the thoracic aorta are noted. Bones: No acute osseous abnormality. IMPRESSION: No acute cardiopulmonary disease. ATED BY: BROOKS THOMPSON MD DICTATED DATE/TIME: 07/07/24 1239 SIGNED BY: BROOKS THOMPSON MD SIGNED DATE/TIME: 07/07/24 1239 CC: [place] [id number] Ph: [phone] DIAGNOSTIC IMAGING Diagnostic Imaging Report : [id number] Signed PATIENT: LINNEA TORRES ACCT: [id number] UNIT: [id number] : 1950 LOC: [facility] ROOM / BED: [facility] / B AGE / SEX: 73 / F ADM STATUS: ADM IN SERVICE 0856 ORDERING PHYSICIAN: JADA ANGEL PROCEDURE(s): BLDVT - BiLat Lower DVT REASON: elevated ddimer ORDER NUMBER(s): [id number], ACCESSION NUMBER(s): [id number] BILATERAL LOWER EXTREMITY VENOUS DOPPLER CLINICAL HISTORY: elevated ddimer Technique: Duplex Doppler evaluation of the deep venous systems of both lower extremities from the common femoral veins to the popliteal veins including color Doppler and spectral/pulsed waveform analysis was performed. COMPARISON: None FINDINGS: The right and left common femoral, superficial femoral, popliteal, posterior tibial veins and trifurcations appear patent with normal augmentation, phasicity, compressibility and color-flow. IMPRESSION: 1. There is no sonographic evidence for DVT in the lower extremities. HS:Y ATED BY: ENRIQUE PARRISH MD DICTATED DATE/TIME: 07/08/24 1027 SIGNED BY: ENRIQUE PARRISH MD SIGNED DATE/TIME: 07/08/24 1027 CC: [place] [id number] Ph: [phone] DIAGNOSTIC IMAGING Diagnostic Imaging Report : [id number] Signed PATIENT: LINNEA TORRES ACCT: [id number] UNIT: [id number] : 1950 LOC: [facility] ROOM / BED: [address] [place] [address] AGE / SEX: 73 / F ADM STATUS: ADM IN SERVICE 0856 ORDERING PHYSICIAN: JADA ANGEL RESIDENT PROCEDURE(s): VQ - NM VQ SCAN REASON: PULMONARY EMBOLISM ORDER NUMBER(s): [id number], ACCESSION NUMBER(s): [id number] NUCLEAR MEDICINE VENTILATION/PERFUSION LUNG SCAN. INDICATION: PULMONARY EMBOLISM COMPARISON: None TECHNIQUE: Following intravenous demonstration of 4.3 millicuries of technetium 99m MAA, and inhalation of 7 mCi of Xe 133 scintigrams were obtained in multiple projections of the lungs. FINDINGS: There is normal uptake of radionuclide on both the ventilation and perfusion portions of the examination. No mismatched perfusion defects are demonstrated. Uptake is normally homogeneous. IMPRESSION: Low probability for PE. ATED BY: WARD HUTCHINSON MD DICTATED DATE/TIME: 07/08/24 1128 SIGNED BY: WARD HUTCHINSON MD SIGNED DATE/TIME: 07/08/241127 CC: [place] [id number] Ph: [phone] DIAGNOSTIC IMAGING Diagnostic Imaging Report : [id number] Signed PATIENT: LINNEA TORRES ACCT: [id number] UNIT: [id number] : 1950 LOC: [facility] ROOM / BED: [address] [place] [address] AGE / SEX: 73 / F ADM STATUS: ADM IN SERVICE 1525 ORDERING PHYSICIAN: JADA ANGEL PROCEDURE(s): CX2CT - CHEST WITHOUT CONTRAST REASON: copd ORDER NUMBER(s): [id number], ACCESSION NUMBER(s): [id number] Procedure: CT CHEST WITHOUT CONTRAST Study Date and Requested Time: 07/08/2024 03:49 PM History : copd Comparison: None Dose: CTDI: 8.39 mGy DLP: 310.93 mGycm Technique: Multiplanar images obtained through the chest without contrast Findings: The thyroid gland is unremarkable. Heart size is within normal limits. No evidence of aortic aneurysm. Mild atherosclerotic calcification of the aorta. The pulmonary trunk is normal in size. No significant mediastinal or hilar lymphadenopathy. No pneumothorax, pleural effusion or focal airspace consolidation. Bibasilar atelectasis. No significant emphysematous changes. 2.9 cm hepatic cyst with additional subcentimeter hepatic lesions too small to characterize. Gastric wall thickening. 3.3 by 2.7 cm left adrenal nodule measuring up to 19 Hounsfield unit. Mild left pelviectasis. The soft tissues are unremarkable. No destructive osseous lesions are noted. Impression: Bibasilar linear atelectasis. Otherwise no evidence for acute intrathoracic abnormalities. No findings to suggest COPD. 3.3 x 2.7 cm left adrenal nodule. Gastric wall thickening which may be due to inadequate distention/gastritis. ATED BY: SARAH BRIZUELA DO DICTATED DATE/TIME: 07/08/24 1624 SIGNED BY: SARAH BRIZUELA DO SIGNED DATE/TIME: 07/08/24 1624 CC: Condition at Discharge: Guarded Final Diagnosis/Problems List Acute hypoxic respiratory failure COPD exacerbation Hypertension Chronic kidney disease Pneumonia, Gram-positive versus Gram-negative versus atypical Respiratory alkalosis Dyslipidemia Discharge Disposition: Home Discharge Instruct/Medications Diet: Cardiac 2g Na,low cholest Activity: No Restrictions, As Tolerated Follow Up/Referral: fu with pcp in 1-2 weeks Medications: continue meds as prescribed Discharge Statement: "Patient was advised to return to the ER or call 911 if any headaches, dizziness, shortness of breath, chest pain, abdominal pain, bleeding, fevers, or worsening of medical condition. Patient was counseled about treatment plan, medications, possible side effects, patientverbalized understanding. All questions were answered to the best of my ability. This discharge took greater then 30 minutes in planning, reviewing documentation, counseling the patient, and discussing with other team members." ASSESSMENT ASSESSMENT Assessment copd exacerbation Date of Service: Jul 09, 2024 Billing Provider: RAHAT BAXTER MD Common Visit Codes: 66294-YZE/OBS DISCH DAY >30min JADA ANGEL RESIDENT Jul 09, 2024 15:38 RAHAT BAXTER MD Jul 09, 2024 17:18
== END 2024-07-09 13:45 | disposition home or self-care (01) | DRG 177 ==
LOC: ER 12:09 → OVERFLOW 19:07 → WEST WING 19:11
PROVIDERS: ADMIT Internal Medicine; ATTEND Emergency Medicine
DX: J15.69 Pneumonia due to other Gram-negative bacteria (principal); J96.21 Acute and chronic respiratory failure with hypoxia; J44.1 Chronic obstructive pulmonary disease with (acute) exacerbation; E87.3 Alkalosis; J44.0 Chronic obstructive pulmonary disease with (acute) lower respiratory infection; J15.9 Unspecified bacterial pneumonia; I12.9 Hypertensive chronic kidney disease with stage 1 through stage 4 chronic kidney disease, or unspecified chronic kidney disease; N18.30 Chronic kidney disease, stage 3 unspecified; Z20.822 Contact with and (suspected) exposure to COVID-19; K21.9 Gastro-esophageal reflux disease without esophagitis; E78.5 Hyperlipidemia, unspecified; Z90.49 Acquired absence of other specified parts of digestive tract; Z91.041 Radiographic dye allergy status; Z79.899 Other long term (current) drug therapy
CPT/HCPCS: 36415; 36600; 71045; 71250; 78582; 80048; 80053; 81001; 82805; 83605; 83735; 83880; 84443; 84484; 85025; 85379; 87040; 87426; 87804; 93005; 93306; 93970; 94640; 96374; 97163; 99291; G0378; J2405; J2470